=== PATIENT | female | born 1985 | race Two or more races ===

== ENCOUNTER 2021-06-26 14:47 | Emergency (ER) | payer MEDICAID ==
[~2021-06-26] VITALS: Ht 149.9 cm; Wt 61.2 kg
[2021-06-26] MEDS ORDERED: PROCHLORPERAZINE EDISYLATE 5 MG/ML 2ML VIAL IV ONE (15:00)
[2021-06-26] MEDS ORDERED: PANTOPRAZOLE 40 MG/10 ML VIAL INJ IV ONE (15:00)
[2021-06-26] MEDS ORDERED: SODIUM CHLORIDE 0.9% 1,000 ML IV ONE (15:00)
[2021-06-26 15:30] LABS: Basophils # (auto) 0.1 10 ^3/uL (0-0.2); Basophils % (auto) 0.4 % (0.0-2.0); Eosinophils # (auto) 0 10 ^3/uL (0-0.8); Hematocrit 40.4 % (36.0-46.0); Hemoglobin 13.8 g/dL (12.2-16.2); Lymphocytes # (auto) 1.4 10 ^3/uL (0.4-5.4); Lymphocytes % (auto) 10.3 % (10.0-50.0); Mean Corpuscular Hgb Conc. 34.2 g/dL (32.0-36.0); Mean Corpuscular Volume 90.7 fL (80.0-100.0); Monocytes # (auto) 0.8 10 ^3/uL (0-1.3); Monocytes % (auto) 5.6 % (0.0-12.0); Neutrophils # (auto) 11.6 10 ^3/uL (1.6-8.6); Neutrophils % (auto) 83.7 % (37.0-80.0); Red Blood Cells 4.45 10^6/uL (4.0-5.20); Red Cell Distribution Width 12.6 % (11.8-14.3); White Blood Cell 13.8 10^3/uL (4.4-10.8)
[2021-06-26 15:57] LABS: Albumin 4.1 g/dL (3.4-5.0); BUN/Creatinine Ratio 17.4; Calcium 9.2 mg/dL (8.5-10.1); Potassium 3.3 mmol/L (3.5-5.1)
[2021-06-26 15:59] LABS: Bilirubin, Total 1.1 mg/dL (0.2-1.0)
[2021-06-26 17:53] VITALS: BP 126/71
== END 2021-06-26 17:54 | disposition home or self-care (01) ==
LOC: ER 14:47
DX: R11.2 Nausea with vomiting, unspecified (principal); R07.89 Other chest pain; F12.10 Cannabis abuse, uncomplicated
CPT/HCPCS: 36415; 80053; 85025; 96361; 96374; 96375; 99284; C9113; J0780; J7030

== ENCOUNTER 2021-06-27 04:24 | Emergency (ER) | payer MEDICAID ==
[~2021-06-27] VITALS: Ht 149.9 cm; Wt 61.2 kg
[2021-06-27] MEDS ORDERED: SODIUM CHLORIDE 0.9% 500 ML IVB ONE (04:45)
[2021-06-27] MEDS ORDERED: ONDANSETRON HCL 4 MG/2 ML VIAL IV ONE (04:45)
[2021-06-27] MEDS ORDERED: HYDROmorphone HCL 2 MG/ML VL IV ONE (04:45)
[2021-06-27 06:06] LABS: Urine Bacteria NONE SEEN /hpf (None Seen); Urine Blood 3+ /uL (Negative); Urine Mucus FEW (None Seen); Urine Specific Gravity 1.025 (1.001-1.035); Urine WBC 61 /hpf (0 - 5); Urine WBC Clumps PRESENT /hpf (None Seen)
[2021-06-27 07:39] LABS: INR 1.02 (0.9-1.15); Partial Thromboplastin Time 26.1 sec (23.0-31.2)
[2021-06-27 07:44] LABS: Basophils # (auto) 0 10 ^3/uL (0-0.2); Basophils % (auto) 0.2 % (0.0-2.0); Eosinophils # (auto) 0 10 ^3/uL (0-0.8); Hemoglobin 13.4 g/dL (12.2-16.2); Lymphocytes # (auto) 0.7 10 ^3/uL (0.4-5.4); Lymphocytes % (auto) 4.7 % (10.0-50.0); Mean Corpuscular Hemoglobin 31.7 pg (28.0-32.0); Mean Corpuscular Hgb Conc. 34.4 g/dL (32.0-36.0); Mean Corpuscular Volume 92.3 fL (80.0-100.0); Monocytes # (auto) 0.5 10 ^3/uL (0-1.3); Monocytes % (auto) 3.6 % (0.0-12.0); Neutrophils # (auto) 13.6 10 ^3/uL (1.6-8.6); Neutrophils % (auto) 91.5 % (37.0-80.0); Nucleated Red Blood Cells % 0.1 %; Red Blood Cells 4.22 10^6/uL (4.0-5.20); Red Cell Distribution Width 12.8 % (11.8-14.3); White Blood Cell 14.8 10^3/uL (4.4-10.8)
[2021-06-27 07:46] LABS: Albumin 3.6 g/dL (3.4-5.0); Amylase 32 U/L (25-115); Anion Gap 9 (5-15); Blood Urea Nitrogen 14 mg/dL (7-18); Calcium 7.9 mg/dL (8.5-10.1); Carbon Dioxide 22 mmol/L (21-32); Chloride 107 mmol/L (98-107); Glucose 103 mg/dL (74-106); Lipase 96 U/L (73-393); Potassium 3.1 mmol/L (3.5-5.1); Sodium 138 mmol/L (136-145)
[2021-06-27 07:52] LABS: Alanine Aminotransferase 26 U/L (13-56); Alkaline Phosphatase 79 U/L (45-117); Aspartate Aminotransferase 22 U/L (15-37); BUN/Creatinine Ratio 18.2; Bilirubin, Total 0.9 mg/dL (0.2-1.0); GFR African American 108 mL/min; GFR Non-African American 90 mL/min; Total Protein 7.6 g/dL (6.4-8.2)
[2021-06-27] MEDS ORDERED: SODIUM CHLORIDE 0.9% 1,000 ML IV ONE ×2 (08:45)
[2021-06-27] MEDS ORDERED: cefTRIAXone 1GM/50ML D5W 50 ML IV ONE (08:45)
[2021-06-27 09:40] VITALS: BP 124/71
== END 2021-06-27 09:48 | disposition home or self-care (01) ==
LOC: ER 04:24
DX: R10.13 Epigastric pain (principal); R11.2 Nausea with vomiting, unspecified
CPT/HCPCS: 36415; 74176; 76705; 80053; 81001; 81025; 82150; 83605; 83690; 83735; 84484; 84702; 85025; 85610; 85730; 87086; 93005; 96361; 96365; 96375; 99285; J0696; J1170; J2405; J7030; J7040

== ENCOUNTER 2022-11-10 08:26 | Emergency (ER) | payer MEDICAID ==
[~2022-11-10] VITALS: Ht 149.9 cm; Wt 56.2 kg
[2022-11-10 08:43] VITALS: BP 154/88
[2022-11-10 09:17] LABS: Basophils # (auto) 0 10 ^3/uL (0-0.2); Basophils % (auto) 0.6 % (0.0-2.0); Eosinophils # (auto) 0 10 ^3/uL (0-0.8); Eosinophils % (auto) 0.9 % (0.0-7.0); Hematocrit 44.7 % (36.0-46.0); Lymphocytes # (auto) 1.1 10 ^3/uL (0.4-5.4); Lymphocytes % (auto) 20.1 % (10.0-50.0); Mean Corpuscular Hemoglobin 31.4 pg (28.0-32.0); Mean Corpuscular Hgb Conc. 33.6 g/dL (32.0-36.0); Mean Corpuscular Volume 93.3 fL (80.0-100.0); Monocytes # (auto) 0.5 10 ^3/uL (0-1.3); Monocytes % (auto) 8.8 % (0.0-12.0); Neutrophils # (auto) 3.9 10 ^3/uL (1.6-8.6); Neutrophils % (auto) 69.6 % (37.0-80.0); Nucleated Red Blood Cells % 0.1 %; Red Blood Cells 4.79 10^6/uL (4.0-5.20); Red Cell Distribution Width 12.2 % (11.8-14.3); White Blood Cell 5.6 10^3/uL (4.4-10.8)
[2022-11-10 10:19] LABS: Urine Blood 2+ /uL (Negative); Urine Specific Gravity 1.018 (1.001-1.035)
[2022-11-10 12:20] LABS: INR 0.94 (0.9-1.15)
[2022-11-10] MEDS ORDERED: SODIUM CHLORIDE 0.9% 1,000 ML IV ONE (12:45)
== END 2022-11-10 13:25 | disposition left against medical advice (07) ==
LOC: ER 08:26
DX: O00.90 Unspecified ectopic pregnancy without intrauterine pregnancy (principal); O26.851 Spotting complicating pregnancy, first trimester; F12.90 Cannabis use, unspecified, uncomplicated; Z3A.01 Less than 8 weeks gestation of pregnancy
CPT/HCPCS: 36415; 76801; 76817; 81001; 84702; 85025; 85610; 86850; 86900; 86901; 96360

== ENCOUNTER 2022-11-12 08:14 | Emergency (ER) | payer MEDICAID ==
[~2022-11-12] VITALS: Ht 149.9 cm; Wt 57.4 kg
[2022-11-12 09:05] LABS: Urine Blood 1+ /uL (Negative); Urine Specific Gravity 1.017 (1.001-1.035)
[2022-11-12 10:22] LABS: Basophils # (auto) 0 10 ^3/uL (0-0.2); Basophils % (auto) 0.2 % (0.0-2.0); Eosinophils # (auto) 0 10 ^3/uL (0-0.8); Hematocrit 40.5 % (36.0-46.0); Hemoglobin 13.3 g/dL (12.2-16.2); Lymphocytes % (auto) 19.8 % (10.0-50.0); Mean Corpuscular Hemoglobin 30.7 pg (28.0-32.0); Mean Corpuscular Hgb Conc. 32.9 g/dL (32.0-36.0); Mean Corpuscular Volume 93.2 fL (80.0-100.0); Monocytes # (auto) 0.4 10 ^3/uL (0-1.3); Monocytes % (auto) 7.5 % (0.0-12.0); Neutrophils # (auto) 3.6 10 ^3/uL (1.6-8.6); Neutrophils % (auto) 71.5 % (37.0-80.0); Red Blood Cells 4.35 10^6/uL (4.0-5.20)
[2022-11-12 10:51] LABS: Albumin 3.4 g/dL (3.4-5.0); Calcium 8.6 mg/dL (8.5-10.1); Potassium 3.8 mmol/L (3.5-5.1)
[2022-11-12 10:55] LABS: BUN/Creatinine Ratio 15.5; Bilirubin, Total 0.3 mg/dL (0.2-1.0); Total Protein 7.1 g/dL (6.4-8.2)
[2022-11-12] MEDS ORDERED: METHOTREXATE SODIUM 25 MG/ML 2ML SDV INJ IM ONE ×3 (14:45→15:30)
[2022-11-12 17:23] VITALS: BP 112/77
== END 2022-11-12 17:25 | disposition home or self-care (01) ==
LOC: ER 08:14
DX: O00.90 Unspecified ectopic pregnancy without intrauterine pregnancy (principal); F12.90 Cannabis use, unspecified, uncomplicated; Z20.822 Contact with and (suspected) exposure to COVID-19
CPT/HCPCS: 36415; 76801; 76817; 80053; 81003; 84702; 85025; 86850; 86900; 86901; 87426; 96372; 99284; J9250

== ENCOUNTER 2022-11-14 08:48 | Inpatient (IN) | payer MEDICAID ==
[~2022-11-14] VITALS: Ht 149.9 cm; Wt 120.7 kg
[2022-11-14 10:19] LABS: Basophils # (auto) 0 10 ^3/uL (0-0.2); Basophils % (auto) 0.1 % (0.0-2.0); Eosinophils # (auto) 0 10 ^3/uL (0-0.8); Eosinophils % (auto) 0.1 % (0.0-7.0); Hemoglobin 13.5 g/dL (12.2-16.2); Lymphocytes # (auto) 0.8 10 ^3/uL (0.4-5.4); Lymphocytes % (auto) 10.5 % (10.0-50.0); Mean Corpuscular Hemoglobin 31.2 pg (28.0-32.0); Mean Corpuscular Hgb Conc. 33.8 g/dL (32.0-36.0); Mean Corpuscular Volume 92.4 fL (80.0-100.0); Monocytes # (auto) 0.2 10 ^3/uL (0-1.3); Monocytes % (auto) 2.7 % (0.0-12.0); Neutrophils % (auto) 86.6 % (37.0-80.0); Nucleated Red Blood Cells % 0.2 %; Red Blood Cells 4.33 10^6/uL (4.0-5.20); Red Cell Distribution Width 12.1 % (11.8-14.3); White Blood Cell 8.1 10^3/uL (4.4-10.8)
[2022-11-14 10:32] LABS: Calcium 8.9 mg/dL (8.5-10.1)
[2022-11-14 10:35] LABS: Albumin 3.6 g/dL (3.4-5.0); BUN/Creatinine Ratio 19.1
[2022-11-14 10:48] LABS: Bilirubin, Total 0.7 mg/dL (0.2-1.0); Total Protein 6.8 g/dL (6.4-8.2)
[2022-11-14] MEDS ORDERED: PHENYLEPHRINE HCL 10 MG/ML VL IV ONE (14:09)
[2022-11-14 15:45] LABS: Urine Bacteria FEW /hpf (None Seen); Urine Blood 3+ /uL (Negative); Urine Mucus FEW (None Seen); Urine Specific Gravity 1.022 (1.001-1.035); Urine WBC 187 /hpf (0 - 5); Urine WBC Clumps PRESENT /hpf (None Seen)
[2022-11-14] MEDS ORDERED: SODIUM CHLORIDE 0.9% 500 ML IV ONE (18:30)
[2022-11-14] MEDS ORDERED: SODIUM CHLORIDE 0.9% 1,000 ML IVB ONE (18:30)
[2022-11-14] MEDS ORDERED: MORPHINE SULFATE 4 MG/ML SYR/VIAL IV ONE (18:45)
[2022-11-14] MEDS ORDERED: ONDANSETRON HCL 4 MG/2 ML VIAL IV ONE (18:45)
[2022-11-14] MEDS ORDERED: cefTRIAXone 1GM/50ML D5W 50 ML IV ONE (18:45)
[2022-11-14] MEDS ORDERED: IBUP800T27 PO (19:23)
[2022-11-14] MEDS ORDERED: DOCU-94 PO (19:23)
[2022-11-14] MEDS ORDERED: ONDA-144 PO (19:23)
[2022-11-14] MEDS ORDERED: HYDR-4902 PO (19:23)
[2022-11-14 19:31] LABS: INR 0.9 (0.9-1.15); Partial Thromboplastin Time 27.6 sec (24.6-33.4)
[2022-11-14] MEDS ORDERED: ceFAZolin 1GM/50ML 100 ML IV ONE (19:32)
[2022-11-14] MEDS ORDERED: fentaNYL CITRATE 100 MCG/2 ML VL ONE (19:46)
[2022-11-14] MEDS ORDERED: MEPERIDINE HCL (50 MG/ML) 1 ML VIAL ONE (19:46)
[2022-11-14] MEDS ORDERED: MIDAZOLAM HCL 2MG/2ML 2ml VIAL (1mg/ml) ONE (19:47)
[2022-11-14] MEDS ORDERED: DexAMETHasone SOD PHOS 10MG/1ML VIAL INJ ONE (19:47)
[2022-11-14] MEDS ORDERED: PROPOFOL 10 MG/ML 20 ML IV ONE (19:47)
[2022-11-14] MEDS ORDERED: LIDOCAINE 2% JELLY 11ml (GLYDO) ONE (19:59)
[2022-11-14] MEDS ORDERED: RHO (D) IMMUNE GLOBULIN 300 MCG INJ IM PRN (20:00)
[2022-11-14] MEDS ORDERED: MORPHINE SULFATE 4 MG/ML SYR/VIAL IV PRN ×2 (20:00→20:30)
[2022-11-14] MEDS ORDERED: ONDANSETRON HCL 4 MG/2 ML VIAL IV PRN ×2 (20:15→20:30)
[2022-11-14] MEDS: LACTATED RINGER'S 1,000 ML IV SCH (20:15)
[2022-11-14] MEDS ORDERED: ONDANSETRON HCL 4 MG/2 ML VIAL ONE (20:25)
[2022-11-14] MEDS ORDERED: HYDROmorphone HCL 2 MG/ML VL/or syr IV PRN (20:30)
[2022-11-14] MEDS ORDERED: MIDAZOLAM HCL 2MG/2ML 2ml VIAL (1mg/ml) IV PRN (20:30)
[2022-11-14] MEDS ORDERED: LABETALOL HCL 5 MG/ML 4ML SYRINGE IV PRN (20:30)
[2022-11-14] MEDS ORDERED: ePHEDrine SULFATE 50 MG/ML AMP IV PRN (20:30)
[2022-11-14] MEDS ORDERED: SUGAMMADEX 200mg/2ml Vial (100MG/ML) IV ONE (20:34)
[2022-11-14] MEDS ORDERED: NITROGLYCERIN 0.4 MG SL TAB SL PRN (21:00)
[2022-11-14] MEDS ORDERED: MORPHINE SULFATE INJ 2 MG/ml SYRG IV PRN (21:00)
[2022-11-14] MEDS: ceFAZolin 1GM/50ML 50 ML IV SCH (22:37)
[2022-11-14] MEDS ORDERED: HYDROcodone-ACET 5/325MG TAB PO PRN (23:30)
[2022-11-15 00:17] LABS: Hematocrit 39.7 % (36.0-46.0); Hemoglobin 12.9 g/dL (12.2-16.2); Mean Corpuscular Hgb Conc. 32.4 g/dL (32.0-36.0); Mean Corpuscular Volume 92.4 fL (80.0-100.0); Red Cell Distribution Width 12.1 % (11.8-14.3); White Blood Cell 11.2 10^3/uL (4.4-10.8)
[2022-11-15 00:21] LABS: Basophils % (manual) 0 (0.0-2.0); Blast Cells 0; Eosinophils % (manual) 0 (0-7); Metamyelocytes % 0; Myelocytes % 0; Promyelocytes % 0; Reactive Lymphocytes 0
[2022-11-15 01:46] LABS: Band Neutrophils % (manual) 7; Lymphocytes % (manual) 2 (10.0-50.0); Monocytes % (manual) 1 (0-12)
[2022-11-15] MEDS: LACTATED RINGER'S 1,000 ML IV SCH ×2 (02:25→09:35)
[2022-11-15 05:00] VITALS: BP 117/67
[2022-11-15 05:44] LABS: Basophils # (auto) 0 10 ^3/uL (0-0.2); Eosinophils # (auto) 0 10 ^3/uL (0-0.8); Hematocrit 37.4 % (36.0-46.0); Hemoglobin 12.5 g/dL (12.2-16.2); Lymphocytes # (auto) 0.5 10 ^3/uL (0.4-5.4); Lymphocytes % (auto) 6.5 % (10.0-50.0); Mean Corpuscular Hemoglobin 31.1 pg (28.0-32.0); Mean Corpuscular Hgb Conc. 33.5 g/dL (32.0-36.0); Mean Corpuscular Volume 92.8 fL (80.0-100.0); Monocytes # (auto) 0.1 10 ^3/uL (0-1.3); Monocytes % (auto) 1.6 % (0.0-12.0); Neutrophils # (auto) 7.1 10 ^3/uL (1.6-8.6); Neutrophils % (auto) 91.9 % (37.0-80.0); Red Blood Cells 4.03 10^6/uL (4.0-5.20); Red Cell Distribution Width 11.8 % (11.8-14.3); White Blood Cell 7.8 10^3/uL (4.4-10.8)
[2022-11-15] MEDS: ceFAZolin 1GM/50ML 50 ML IV SCH (06:04)
[2022-11-15] MEDS ORDERED: BISACODYL 10 MG RECT SUPP PR PRN (07:45)
[2022-11-15] MEDS ORDERED: DOCUSATE SOD 100 MG CAP PO PRN (07:45)
[2022-11-15] MEDS ORDERED: RHO (D) IMMUNE GLOBULIN 300 MCG INJ IM PRN ×2 (07:45)
[2022-11-15 08:51] VITALS: BP 105/45
[2022-11-15] MEDS ORDERED: DOCUSATE SOD 100 MG CAP PO SCH (10:00)
[2022-11-15 10:55] VITALS: BP 95/55
[2022-11-15 13:00] VITALS: BP 116/70
== END 2022-11-15 14:10 | disposition home or self-care (01) | DRG 547 ==
LOC: ER 08:48 → OVERFLOW 20:49 → EAST 21:50
PROVIDERS: ADMIT Obstetrics & Gynecology; ATTEND Obstetrics & Gynecology
PROC: 0UT54ZZ Resection of Right Fallopian Tube, Percutaneous Endoscopic Approach (ICD-10-PCS; 2022-11-14)
PROC: 10T24ZZ Resection of Products of Conception, Ectopic, Percutaneous Endoscopic Approach (ICD-10-PCS; principal; 2022-11-14 19:54)
DX: O00.101 Right tubal pregnancy without intrauterine pregnancy (principal); K66.1 Hemoperitoneum; Z20.822 Contact with and (suspected) exposure to COVID-19
CPT/HCPCS: 36415; 76801; 76817; 80053; 81001; 84702; 85007; 85025; 85027; 85610; 85730; 86850; 86900; 86901; 87426; 96374; 99291; G0378; J0690; J1100; J2250; J2405; J2704

== ENCOUNTER 2024-01-23 12:23 | Emergency (ER) | payer MEDICAID ==
[~2024-01-23] VITALS: Ht 149.9 cm; Wt 61.6 kg
[~2024-01-23 12:23] MED LIST: DOCU-94 PO; HYDR-4902 PO; IBUP-1456 PO; ONDA-144 PO
[2024-01-23] MEDS ORDERED: diphenhdrAMINE HCL 50 MG/1 ML VL IV ONE (12:45)
[2024-01-23] MEDS ORDERED: FAMOTIDINE (10MG/ML) 2ML VL IV ONE (12:45)
[2024-01-23] MEDS: EPINEPHrine HCL 1 MG/1 ML AMP SC ONE (13:36)
[2024-01-23] MEDS ORDERED: HYDR25CA PO (13:40)
[2024-01-23] MEDS ORDERED: METH4PAK PO (13:40)
[2024-01-23] MEDS: methylPREDNISolone SOD SUCC 125 MG/2 ML VL IV ONE (13:43)
[2024-01-23 13:51] VITALS: BP 147/84; PULSE 83; RESP 18; TEMP 98.5; O2SAT 96
== END 2024-01-23 14:05 | disposition home or self-care (01) ==
LOC: ER 12:23
DX: T78.40XA Allergy, unspecified, initial encounter (principal); Z79.1 Long term (current) use of non-steroidal anti-inflammatories (NSAID); Z79.899 Other long term (current) drug therapy; Y92.89 Other specified places as the place of occurrence of the external cause
CPT/HCPCS: 96372; 96374; 99284; J0171; J2930